=== PATIENT | male | born 1960 | race Caucasian/White ===

== ENCOUNTER → 2019-11-07 | Outpatient (CLI) | payer OTHER ==
[~2019-11-07] MED LIST: ASPI-630 PO; ATOR20TA58 PO; GLUC-11 PO; LISI-334 PO; LORA10TA55 PO; METF850T8 PO; METO25TA2 PO; MONT10TA49 PO; MULT-659 PO; NIAC500C6 PO; OMEG-117 PO; OXYC-325 PO; vitamin d PO
== END | disposition home or self-care (01) ==
LOC: LAB 12:55
PROVIDERS: ATTEND Surgery
DX: Z01.812 Encounter for preprocedural laboratory examination (principal); K40.90 Unilateral inguinal hernia, without obstruction or gangrene, not specified as recurrent; Z20.828 Contact with and (suspected) exposure to other viral communicable diseases
CPT/HCPCS: U0003-CS

== ENCOUNTER 2019-11-10 09:06 | Day surgery (SDC) | payer OTHER ==
[~2019-11-10] VITALS: Ht 182.9 cm; Wt 129.0 kg
[~2019-11-10 09:06] MED LIST changes: +ACETAMINOPHEN 500 MG TABLET PO PRN; +BUPIVACAINE-EPI 0.5%-1:200000 MPF 30 ML VIAL. ONE; +HYDROmorphone 2 MG/ML VIAL IV PRN; +LIDOCAINE 1% PF 2 ML VIAL. ID PRN; +MORPHINE SULFATE 2 MG/ML VIAL. IV PRN; +ONDANSETRON PF 4 MG/2 ML VIAL. IV PRN; -OXYC-325 PO; +PROCHLORPERAZINE 10 MG/2 ML VIAL. IV PRN; +ceFAZolin SODIUM 3 GM in IV DEXTROSE 5% 100ML 100 ML IV PRN; +fentaNYL PF VIAL 100 MCG/2 ML VIAL IV PRN
[2019-11-10] MEDS: INSULIN LISPRO 100 UNIT/ML 3ML VIAL for OP,RR ONLY. SQ PRN ×2 (09:38→13:31)
[2019-11-10] MEDS: IV RINGERS,LACTATED 1000ML 1,000 ML IV SCH ×2 (09:42→13:35)
[2019-11-10] MEDS ORDERED: ROCURONIUM 50 MG/5 ML VIAL. ONE (10:34)
[2019-11-10] MEDS ORDERED: fentaNYL PF VIAL 100 MCG/2 ML VIAL ONE (10:35)
[2019-11-10] MEDS ORDERED: DEXAMETHASONE SOD PHOS 20 MG/5 ML VIAL. ONE (10:35)
[2019-11-10] MEDS ORDERED: MIDAZOLAM HCL/PF 2 MG/2 ML VIAL. ONE (10:35)
[2019-11-10] MEDS ORDERED: LIDOCAINE 2% PF 5 ML VIAL. ONE (10:35)
[2019-11-10] MEDS ORDERED: PROPOFOL 10 MG/ML (20ML) VIAL. IV ONE (10:35)
[2019-11-10] MEDS ORDERED: SEVOFLURANE 61 TO 120 MINUTES. IH ONE (10:35)
[2019-11-10] MEDS ORDERED: ONDANSETRON PF 4 MG/2 ML VIAL. ONE (10:36)
[2019-11-10] MEDS ORDERED: GLYCOPYRROLATE 1 MG/5 ML VIAL. ONE (10:40)
[2019-11-10] MEDS ORDERED: NEOSTIGMINE METHYLSULFATE 5 MG/5 ML SYRINGE. ONE (10:40)
[2019-11-10] MEDS ORDERED: MINERAL OIL for SURGERY 10 ML VIAL. MC ONE (11:24)
[2019-11-10] MEDS ORDERED: ePHEDrine PF IN SALINE 50 MG/10 ML SYRINGE. IV ONE (11:35)
--- NOTE | 2019-11-10 12:29 | PDOC4 ---
Operative Note Operative Note Date: 11/10/2019 at 1224 Preoperative diagnosis: Right inguinal hernia Postoperative diagnosis: Same Procedure: Robotic assisted laparoscopic right inguinal hernia repair with mesh Surgeon: Moisés Specimen: None Dictation: Patient is a 59-year-old gentleman with a right inguinal hernia and right inguinal pain. Procedure of robotic assisted laparoscopic right inguinal hernia repair with mesh was explained to the patient detail risk-benefit were al so discussed including bleeding infection injury to intra-abdominal contents possible necessitating further open operations alternatives to this procedure also discussed with the patient who seemed to understand and gave both verbal and written consent to have the procedure performed. Patient was taken to the operating room placed in supine position general anesthesia was initiated once patient was sleeping intubated he was then placed in low lithotomy position and his abdomen was prepped and draped usual sterile fashion using ChloraPrep. An area just above the umbilicus was injected quarter percent Marcaine with epinephrine incision was made 11 blade scalpel and a varies needle was placed within the abdomen creating pneumoperitoneum once this complete a millimeter da Avery port was placed and a da Avery camera was placed within the abdomen which inspected was noted that he had a right inguinal hernia otherwise normal abdomen. 8 mm da Avery port was placed in the right midabdomen and an 8 mm da Avery port was placed in the left midabdomen. The da Avery robot was brought and docked all port sites surgeon went to the robotic console using a grasper and Endo Jaron scissors the peritoneum was incised and the peritoneal flap was created inferiorly reducing the hernia sac and contents. Patient did have a fairly large cord lipoma. A large Bard 3D max mesh for the right side was then placed over the hernia defect and the peritoneum was closed over the mesh using a running 2 OV lock absorbable suture. Once this complete the robot was undocked from all port sites pneumoperitoneum was reduced all ports were removed port sites were all closed with 4 subcuticular Monocryl Mastisol Steri-Strips and island dressings were applied. Patient was awakened and extubated in the operating room taken to recovery in stable condition all sponge instrument needle counts listed as correct estimated blood loss 10 mL. TC MUÑOZ MD Nov 10, 2019 12:28
--- NOTE | 2019-11-10 12:33 | DISCH ---
DISCHARGE INSTRUCTIONS Condition on Discharge Condition on Discharge: Stable Activity After Discharge Activity Instructions for Disc: Avoid exertion Other activity instructions: No lifting within 20 pounds for 2 weeks Diet after Discharge Diet after Discharge: Regular Wound Incision Care Other wound/incision instructi: May shower in 24 hours Contacting the after DC Call your doctor for: If your condition worsens Follow-Up Follow up with: Dr. Muñoz in 2 weeks TC MUÑOZ MD Nov 10, 2019 12:33
[2019-11-10] MEDS ORDERED: oxyCODONE/APAP 5/325 1 TAB TABLET PO ONE ×2 (13:00)
[2019-11-10] MEDS ORDERED: OXYC-325 PO (13:18)
[2019-11-10] MEDS ORDERED: INSULIN LISPRO 100 UNIT/ML 3ML VIAL for OP,RR ONLY. SQ ONE ×2 (13:40)
[2019-11-10 13:50] VITALS: BP 143/75
== END 2019-11-10 14:09 | disposition home or self-care (01) ==
LOC: SURG 09:06
PROVIDERS: ATTEND Surgery
DX: K40.90 Unilateral inguinal hernia, without obstruction or gangrene, not specified as recurrent (principal); Z79.82 Long term (current) use of aspirin; Z79.899 Other long term (current) drug therapy; Z87.891 Personal history of nicotine dependence
CPT/HCPCS: 49650; 82962; A7015; C1781; J1100; J1815; J2250; J2405; J2704; J2710; J3010; J3490